=== PATIENT | female | born 1985 | race Caucasian/White ===

== ENCOUNTER 2023-07-25 16:35 | Inpatient (IN) | payer SELFPAY ==
[~2023-07-25] VITALS: Ht 167.6 cm; Wt 66.0 kg
[2023-07-25 16:39] VITALS: O2SAT 99
[2023-07-25] MEDS: PIPERACILLIN/TAZO 3.375G/50ML 50 ML IV ONE (17:13)
[2023-07-25] MEDS: ACETAMINOPHEN 325MG TABLET PO STA (17:13)
[2023-07-25] MEDS: SODIUM CHLORIDE 0.9% 1000ML BAG (SEPSIS BOLUS) IV NR (17:39)
[2023-07-25 17:55] LABS: BASOPHILS % 0.1 % (0.0-2.0); HEMATOCRIT. 41.2 % (36.0-48.0); HEMOGLOBIN. 13.8 g/dL (12.0-16.0); MEAN CORPUSCULAR HEMOGLOBIN 28.6 pg (28.0-32.0); MEAN CORPUSCULAR HGB CONC 33.4 g/dL (31.0-37.0); MEAN CORPUSCULAR VOLUME 85.6 fL (81.0-99.0); MEAN PLATELET VOLUME 7.4 fl (7.4-10.4); MONOCYTES % 6.1 % (2.0-8.0); NEUTROPHILS % 85.8 % (40.0-76.0); PLATELET 348 x1000/uL (130-400); RED BLOOD CELL COUNT 4.82 mill/uL (4.2-5.4); RED CELL DISTRIBUTION WIDTH 13.4 % (11.6-14.6)
[2023-07-25 18:01] LABS: CHLORIDE 103 mEq/L (98-107); POTASSIUM 3.9 mEq/L (3.5-5.1); SODIUM 134 mEq/L (136-145)
[2023-07-25 18:02] LABS: CARBON DIOXIDE 24 mEq/L (21-32)
[2023-07-25 18:03] LABS: CALCIUM 9.7 mg/dL (8.7-10.4)
[2023-07-25 18:05] LABS: HCG SCREEN NEGATIVE
[2023-07-25 18:07] LABS: CREATININE 0.7 mg/dL (0.6-1.0); GLUCOSE 86 mg/dL (70-105)
[2023-07-25 18:08] LABS: UREA NITROGEN BLOOD 8 mg/dL (9-23)
[2023-07-25 18:10] LABS: PROTHROMBIN TIME 10.7 sec (9.6-11.0)
[2023-07-25 18:15] LABS: TROPONIN I HIGH SENSITIVITY < 4 ng/L (3.0-34)
[2023-07-25] MEDS: VANCOMYCIN 1G PREMIX 200 ML IV ONE (18:48)
[2023-07-25] MEDS: IOHEXOL-300 100 ML BOTTLE ONE (20:06)
[2023-07-25 20:08] LABS: ALANINE AMINOTRANSFERASE 18 IU/L (10-49); ALBUMIN 4.8 g/dL (3.2-4.8); ASPARTATE AMINOTRANSFERASE 22 IU/L (<34); BILIRUBIN DIRECT 0.4 mg/dL (<=3.0); BILIRUBIN TOTAL 1.2 mg/dL (0.1-1.0); PROTEIN TOTAL 7.5 g/dL (6.0-8.3)
[2023-07-25 20:38] LABS: CLARITY URINE CLEAR (CLEAR); COLOR URINE YELLOW (YELLOW); GLUCOSE URINE NEGATIVE (NEGATIVE); KETONES URINE NEGATIVE (NEGATIVE); LEUKOCYTE ESTERASE URINE 2+ (NEGATIVE); NITRITE URINE POSITIVE (NEGATIVE); OCCULT BLOOD URINE NEGATIVE (NEGATIVE); PH URINE 8.5 (4.5-8.0); PROTEIN URINE NEGATIVE (NEGATIVE); SPECIFIC GRAVITY URINE 1.006 (1.005-1.030); UROBILINOGEN URINE 0.2 E.U./dL (0.2-1.0)
[2023-07-25 21:15] LABS: BACTERIA URINE 1+; RBC URINE 0-2 /hpf (0-2); SQUAMOUS EPITHELIAL CELL URINE 1+ /lpf (RARE/1+)
[2023-07-25] MEDS ORDERED: CLONIDINE 0.1MG TABLET PO PRN (23:45)
[2023-07-25] MEDS ORDERED: PIPERACILLIN/TAZOBACTAM 3.375 G in DEXTROSE 5% WATER 50 ML IV SCH (23:45)
[2023-07-25] MEDS ORDERED: DOCUSATE SODIUM 100MG CAPSULE PO PRN (23:45)
[2023-07-25] MEDS ORDERED: GUAIFENESIN 200MG/10ML SUGAR FREE UDC PO PRN (23:45)
[2023-07-25] MEDS ORDERED: MAGNESIUM/ALUMINUM HYDROXIDE/SIMETHICONE 30ML UDC PO PRN (23:45)
[2023-07-25] MEDS ORDERED: ONDANSETRON HCL 4MG/2ML INJ IV PRN (23:45)
[2023-07-25] MEDS ORDERED: IPRATROPIUM/ALBUTEROL 0.5-3(2.5)MG/3ML NEB HHN PRN (23:45)
[2023-07-26] MEDS: SODIUM CHLORIDE 0.9% 1,000 ML IV SCH (00:41)
[2023-07-26 01:16] LABS: PHOSPHORUS 3.1 mg/dL (2.5-4.9)
[2023-07-26 05:18] VITALS: TEMP 98.6
[2023-07-26] MEDS ORDERED: VANCOMYCIN 750MG/150ML IV SCH (06:00)
[2023-07-26] MEDS: PIPERACILLIN/TAZO 3.375G/50ML IV SCH (06:41)
[2023-07-26 06:54] LABS: CHLORIDE 109 mEq/L (98-107); POTASSIUM 3.6 mEq/L (3.5-5.1); SODIUM 136 mEq/L (136-145)
[2023-07-26 06:55] LABS: CALCIUM 8.6 mg/dL (8.7-10.4); CARBON DIOXIDE 20 mEq/L (21-32)
[2023-07-26 06:59] LABS: BASOPHILS % 0.2 % (0.0-2.0); HEMATOCRIT. 36.4 % (36.0-48.0); HEMOGLOBIN. 12.4 g/dL (12.0-16.0); LYMPHOCYTES % 7.7 % (20.0-50.0); MEAN CORPUSCULAR HEMOGLOBIN 29.1 pg (28.0-32.0); MEAN CORPUSCULAR VOLUME 85.8 fL (81.0-99.0); MEAN PLATELET VOLUME 7.3 fl (7.4-10.4); MONOCYTES % 7.9 % (2.0-8.0); NEUTROPHILS % 84.2 % (40.0-76.0); PLATELET 269 x1000/uL (130-400); RED BLOOD CELL COUNT 4.24 mill/uL (4.2-5.4); RED CELL DISTRIBUTION WIDTH 13.5 % (11.6-14.6); WHITE BLOOD COUNT 19.4 x1000/uL (4.5-11.0)
[2023-07-26 07:00] LABS: CREATININE 0.6 mg/dL (0.6-1.0); GLUCOSE 81 mg/dL (70-105); TRIGLYCERIDE 88 mg/dL (0-150); UREA NITROGEN BLOOD 7 mg/dL (9-23)
[2023-07-26 07:01] LABS: LDL CHOLESTEROL 58 mg/dL (5-100)
[2023-07-26 07:02] LABS: CHOLESTEROL 120 mg/dL (<200); CREATINE KINASE 38 IU/L (34-145); HDL CHOLESTEROL 51 mg/dL (>65); T4 FREE 0.89 ng/dL (0.89-1.76); THYROID STIMULATING HORMONE 0.94 uIU/mL (0.55-4.78)
[2023-07-26] MEDS: MAGNESIUM 2 G PREMIX 50 ML IV SCH (09:37)
[2023-07-26] MEDS: ENOXAPARIN 40MG/0.4ML SYR SUBCUT SCH (09:37)
[2023-07-26] MEDS: VANCOMYCIN 750MG/150ML IV SCH (10:03)
[2023-07-26] MEDS: ACETAMINOPHEN 325MG TABLET PO PRN (10:03)
[2023-07-26 14:05] VITALS: BP 80/52; PULSE 102; RESP 14
[2023-07-26] MEDS: HYDROCODONE/ACETAMINOPHEN 7.5/325MG TABLET PO NR (14:05)
[2023-07-26] MEDS ORDERED: FAMOTIDINE 20MG TABLET PO SCH (21:00)
== END 2023-07-26 13:55 | disposition home or self-care (01) | DRG 720 ==
LOC: ER 16:35 → 5WST 20:04 → EDBEDREQ 20:09 → EDBEDREQTM 20:09
PROVIDERS: ADMIT Hospitalist; ATTEND Hospitalist
DX: A41.9 Sepsis, unspecified organism (principal); E87.1 Hypo-osmolality and hyponatremia; N39.0 Urinary tract infection, site not specified; E80.6 Other disorders of bilirubin metabolism; N83.201 Unspecified ovarian cyst, right side; Z98.891 History of uterine scar from previous surgery; Z90.710 Acquired absence of both cervix and uterus; Z79.899 Other long term (current) drug therapy
CPT/HCPCS: 36415; 71045; 74177; 76830; 76856; 80048; 80061; 80076; 81003; 82550; 83605; 83735; 84100; 84145; 84439; 84443; 84484; 84703; 85025; 93005; 99291; J1650; J2543; J3370; J3475; J7030; Q9967

== ENCOUNTER 2023-11-20 14:02 | Emergency (ER) | payer MEDICAID ==
[~2023-11-20] VITALS: Ht 162.6 cm; Wt 72.0 kg
[2023-11-20 14:03] VITALS: O2SAT 99
[2023-11-20 17:23] LABS: CHLORIDE 106 mEq/L (98-107); SODIUM 138 mEq/L (136-145)
[2023-11-20 17:24] LABS: CARBON DIOXIDE 24 mEq/L (21-32)
[2023-11-20 17:25] LABS: CALCIUM 9.8 mg/dL (8.7-10.4)
[2023-11-20 17:29] LABS: BASOPHILS % 0.2 % (0.0-2.0); CREATININE 0.8 mg/dL (0.6-1.0); EOSINOPHILS % 0.6 % (0.0-5.0); GLUCOSE 91 mg/dL (70-105); HEMATOCRIT. 44.7 % (36.0-48.0); HEMOGLOBIN. 14.7 g/dL (12.0-16.0); LYMPHOCYTES % 32.4 % (20.0-50.0); MEAN CORPUSCULAR HEMOGLOBIN 28.3 pg (28.0-32.0); MEAN CORPUSCULAR HGB CONC 32.9 g/dL (31.0-37.0); MEAN CORPUSCULAR VOLUME 85.8 fL (81.0-99.0); MEAN PLATELET VOLUME 7.2 fl (7.4-10.4); MONOCYTES % 6.4 % (2.0-8.0); NEUTROPHILS % 60.4 % (40.0-76.0); PLATELET 368 x1000/uL (130-400); RED BLOOD CELL COUNT 5.21 mill/uL (4.2-5.4); RED CELL DISTRIBUTION WIDTH 14.2 % (11.6-14.6); WHITE BLOOD COUNT 9.9 x1000/uL (4.5-11.0)
[2023-11-20 17:30] LABS: UREA NITROGEN BLOOD 8 mg/dL (9-23)
[2023-11-20 17:31] LABS: ALANINE AMINOTRANSFERASE 20 IU/L (10-49); ALBUMIN 4.8 g/dL (3.2-4.8); ASPARTATE AMINOTRANSFERASE 22 IU/L (<34)
[2023-11-20 17:32] LABS: BILIRUBIN TOTAL 1.1 mg/dL (0.1-1.0); PROTEIN TOTAL 7.8 g/dL (6.0-8.3)
[2023-11-20 17:35] LABS: THYROID STIMULATING HORMONE 1.67 uIU/mL (0.55-4.78)
[2023-11-20 17:48] LABS: ETHANOL BLOOD < 10 mg/dL (<10); TROPONIN I HIGH SENSITIVITY < 4 ng/L (3.0-34)
[2023-11-20 21:23] LABS: CLARITY URINE CLEAR (CLEAR); COLOR URINE YELLOW (YELLOW); GLUCOSE URINE NEGATIVE (NEGATIVE); KETONES URINE TRACE (NEGATIVE); LEUKOCYTE ESTERASE URINE NEGATIVE (NEGATIVE); NITRITE URINE NEGATIVE (NEGATIVE); OCCULT BLOOD URINE 1+ (NEGATIVE); PROTEIN URINE NEGATIVE (NEGATIVE); SPECIFIC GRAVITY URINE 1.066 (1.005-1.030); UROBILINOGEN URINE 0.2 E.U./dL (0.2-1.0)
[2023-11-20 21:26] LABS: TROPONIN I HIGH SENSITIVITY < 4 ng/L (3.0-34)
[2023-11-20 21:46] LABS: *AMPHETAMINES SCREEN URINE PRESUMPTIVE POSITIVE (NEGATIVE); *BARBITURATES SCREEN URINE NEGATIVE (NEGATIVE); *BENZODIAZEPINES SCREEN URINE NEGATIVE (NEGATIVE); *COCAINE SCREEN URINE NEGATIVE (NEGATIVE); METHADONE URINE SCREEN NEGATIVE (NEGATIVE); OPIATES URINE SCREEN NEGATIVE (NEGATIVE); PHENCYCLIDINE URINE SCREEN NEGATIVE (NEGATIVE)
[2023-11-20 21:47] LABS: CANNABINOID URINE SCREEN NEGATIVE (NEGATIVE); ECSTASY MDMA SCREEN URINE NEGATIVE (NEGATIVE)
[2023-11-20 21:55] LABS: BACTERIA URINE NONE SEEN; RBC URINE NONE SEEN /hpf (0-2); SQUAMOUS EPITHELIAL CELL URINE FEW /lpf (RARE/1+); WBC URINE NONE SEEN /hpf (0-2)
[2023-11-20 22:15] VITALS: BP 103/73; PULSE 112; RESP 17; TEMP 36.94740; O2SAT 98
[2023-11-20] MEDS: ACETAMINOPHEN 325MG TABLET PO ONE (22:15)
[2023-11-20] MEDS ORDERED: IOHEXOL-300 100 ML BOTTLE ONE (23:07)
== END 2023-11-20 22:15 | disposition home or self-care (01) ==
LOC: ER 14:02 → EDBEDREQ 16:47 → ER 22:15
DX: R07.89 Other chest pain (principal); R06.02 Shortness of breath; F17.200 Nicotine dependence, unspecified, uncomplicated; F12.10 Cannabis abuse, uncomplicated; F41.9 Anxiety disorder, unspecified; Z98.890 Other specified postprocedural states; Z90.710 Acquired absence of both cervix and uterus
CPT/HCPCS: 80053; 80305; 81003; 80320; 83880; 83690; 84443; 85025; 85379; 84484; 36415; 71045; 74177; 93005; 99285; Q9967; G0480

== ENCOUNTER 2024-02-17 15:12 | Emergency (ER) | payer MEDICAID, OTHER ==
[~2024-02-17] VITALS: Ht 167.6 cm; Wt 70.0 kg
[2024-02-17 15:15] VITALS: TEMP 98.2; O2SAT 97
[2024-02-17] MEDS: LORAZEPAM 1MG TABLET PO ONE (16:27)
[2024-02-17 16:29] LABS: HCG SCREEN NEGATIVE
[2024-02-17 18:26] VITALS: BP 112/80; PULSE 100; RESP 14
== END 2024-02-17 18:30 | disposition home or self-care (01) ==
LOC: ER 15:12
DX: S10.91XA Abrasion of unspecified part of neck, initial encounter (principal); R51.9 Headache, unspecified; F10.90 Alcohol use, unspecified, uncomplicated; F12.90 Cannabis use, unspecified, uncomplicated; Z90.710 Acquired absence of both cervix and uterus; Z98.890 Other specified postprocedural states; Y08.89XA Assault by other specified means, initial encounter; Y93.89 Activity, other specified; Y92.89 Other specified places as the place of occurrence of the external cause; Y99.8 Other external cause status; Y90.9 Presence of alcohol in blood, level not specified
CPT/HCPCS: 84703; 99284

== ENCOUNTER 2024-07-21 21:26 | Emergency (ER) | payer OTHER ==
[~2024-07-21] VITALS: Ht 167.6 cm; Wt 75.0 kg
[2024-07-21 21:33] VITALS: O2SAT 98
[2024-07-21 21:50] VITALS: BP 120/77; PULSE 109; RESP 14; TEMP 36.6; O2SAT 98
[2024-07-21] MEDS ORDERED: BO1 TP (22:27)
== END 2024-07-21 23:18 | disposition home or self-care (01) ==
LOC: ER 21:26
DX: T23.201A Burn of second degree of right hand, unspecified site, initial encounter (principal); F12.10 Cannabis abuse, uncomplicated; X10.2XXA Contact with fats and cooking oils, initial encounter; Y93.89 Activity, other specified; Y92.89 Other specified places as the place of occurrence of the external cause; Y99.8 Other external cause status
CPT/HCPCS: 99282; Z7610; A4606